=== PATIENT | male | born 2000 | race Caucasian/White ===

== ENCOUNTER 2025-08-03 13:37 | Emergency (ER) | payer BC ==
[~2025-08-03 13:37] MED LIST: Iopamidol 370 76% 100 ML VIAL ONE
[2025-08-03 14:55] LABS: Hematocrit 41.5 % (38.8-50.0); Hemoglobin 14.4 g/dL (13.5-17.5); Mean Corpuscular Hemoglobin 30.2 pg (27.0-33.0); Mean Corpuscular Volume 87.0 fL (81.2-95.1); Platelet Count 132 10x3/uL (150-450); Red Blood Cell (RBC) Count 4.77 10x6/uL (4.32-5.72); White Blood Cell (WBC) Count 12.57 10x3/uL (3.5-10.5)
[2025-08-03 15:04] LABS: Glucose, Urine (Dipstick) Normal (Negative); Leukocyte Negative (Negative); Protein, Urine (Dipstick) 15 mg/dl (Neg-Trace); Specific Gravity, Urine 1.015 (1.005-1.030)
[2025-08-03 15:10] LABS: INR-International Normal Ratio 1.0; Prothrombin Time 11.1 sec (9.5-12.1)
[2025-08-03 15:24] LABS: MDiff Complete? YES
[2025-08-03 15:25] LABS: ALT (SGPT) 643 U/L (Less than 45); AST (SGOT) 382 U/L (11-34); Albumin 4.2 g/dL (3.1-4.5); Alkaline Phosphatase 246 U/L (40-110); Anion Gap 13 mmol/L (10-20); BUN (Urea Nitrogen) 13 mg/dL (8.9-20.6); Bilirubin, Total 1.1 mg/dL (0.3-1.2); Calc. Creatinine Clearance 0 mL/min (70-130); Calcium 9.1 mg/dL (7.8-10.44); Carbon Dioxide 27 mmol/L (22-29); Chloride 101 mmol/L (98-107); Globulin 3.1 g/dL (2.4-3.5); Glucose 99 mg/dL (70-105); Potassium 3.9 mmol/L (3.5-5.1); Sodium 137 mmol/L (136-145)
[2025-08-03 15:26] LABS: Acetaminophen Less than 10 mcg/mL (Less than 10); Lipase 22 U/L (8-78); Magnesium 2.1 mg/dL (1.6-2.6); Salicylate Less than 8.0 mg/dL (Less than 8.0)
[2025-08-03 15:37] LABS: CAUTI Indications for Culture Pelvic or flank pain; Mucous/LPF Rare LPF (<2+); RBC/HPF 0-3 HPF (0-3); Urine Culture Reflex No No; WBC/HPF 0-3 HPF (0-3)
== END 2025-08-03 17:02 | disposition home or self-care (01) ==
LOC: CSHERS 13:37
DX: R11.2 Nausea with vomiting, unspecified (principal); B27.90 Infectious mononucleosis, unspecified without complication; R74.01 Elevation of levels of liver transaminase levels; I10 Essential (primary) hypertension
CPT/HCPCS: 36415; 74177; 80053; 80307; 81001; 83605; 83690; 83735; 85025; 85610; 96361; 96374